=== PATIENT | male | born 1955 | race Caucasian/White ===

== ENCOUNTER 2022-10-18 00:03 | Observation (INO) | payer MEDICARE ==
[2022-10-18 00:58] LABS: Basophils # (A) 0.1 k/uL (0-0.2); Basophils % (A) 1 %; Eosinophils # (A) 0.4 k/uL (0-0.7); Eosinophils % (A) 4 %; HCT 40.1 % (39.0-53.0); HGB 13.9 gm/dL (13.0-17.5); Lymphocytes # (A) 2.5 k/uL (1.0-4.8); Lymphocytes % (A) 25 %; MCH 30.8 pg (25.0-35.0); MCHC 34.6 g/dL (31.0-37.0); MCV 89.2 fL (80.0-100.0); Mean Platelet Volume 7.6; Monocytes # (A) 0.7 k/uL (0-1.0); Monocytes % (A) 7 %; Neutrophils # (A) 5.9 k/uL (1.3-7.7); Neutrophils % (A) 59 %; Platelet Count 186 k/uL (150-450); RBC 4.49 m/uL (4.30-5.90); RDW 13.4 % (11.5-15.5)
[2022-10-18 01:08] LABS: ALT 25 U/L (4-49); AST 23 U/L (17-59); African American GFR (CKD) >90 (>60 ml/min/1.73 sqM); Albumin 4.1 g/dL (3.5-5.0); Alkaline Phosphatase 73 U/L (38-126); Anion Gap 8 mmol/L; Blood Urea Nitrogen 21 mg/dL (9-20); Calcium 8.6 mg/dL (8.4-10.2); Carbon Dioxide 23 mmol/L (22-30); Chloride 103 mmol/L (98-107); Glucose 130 mg/dL (74-99); Magnesium 2.3 mg/dL (1.6-2.3); Non-African American GFR(CKD) 79 (>60 ml/min/1.73 sqM); Potassium 4.3 mmol/L (3.5-5.1); Sodium 134 mmol/L (137-145); Total Bilirubin 0.5 mg/dL (0.2-1.3); Total Protein 7.7 g/dL (6.3-8.2)
[2022-10-18] MEDS ORDERED: SODIUM CHLORIDE 0.9% 1,000 ML IV STA (01:12)
--- NOTE | 2022-10-18 01:12 | ED ---
Chest Pain HPI - General Chief Complaint: Chest Pain Stated Complaint: Rt Side Chest Pain Time Seen by Provider: 10/18/22 01:12 Source: patient, RN notes reviewed, old records reviewed Mode of arrival: ambulatory - History of Present Illness Initial Comments: This is a 65-year-old male to the emergency department for evaluation. Patient presents today for evaluation of chest pain chest pain is right-sided. No shortness of breath no recent cough or congestion recent fevers. Patient has not had similar pain before. Patient's pain is mildly right-sided chest No travel history or sick contacts. No fevers. MD Complaint: chest pain (Chest pain right-sided), other (Anxiety) -: unknown Onset: during rest, during exertion Pain Location: right chest Pain Radiation: none Quality: tightness, aching, heaviness Consistency: intermittent Improves With: nothing Worsens With: nothing Anginal Symptoms: diaphoresis Other Symptoms: palpitations Treatments Prior to Arrival: none - Related Data Allergies Allergy/AdvReac Type Severity Reaction Status Date / Time No Known Allergies Allergy Verified 10/18/22 00:14 Review of Systems ROS Statement: Those systems with pertinent positive or pertinent negative responses have been documented in the HPI. ROS Other: All systems not noted in ROS Statement are negative. EKG Findings - EKG Comments: EKG Findings:: EKG interpreted by me sinus 85 NV 184 QRS 110 QTc 399 Past Medical History Past Medical History: Hypertension, Thyroid Disorder History of Any Multi-Drug Resistant Organisms: None Reported Past Surgical History: Hernia Repair Past Psychological History: No Psychological Hx Reported Smoking Status: Former smoker Past Alcohol Use History: None Reported Past Drug Use History: None Reported General Exam General appearance: alert, in no apparent distress, anxious (Ning) Head exam: Present: atraumatic, normocephalic, normal inspection Eye exam: Present: normal appearance, PERRL, EOMI. Absent: scleral icterus, conjunctival injection, periorbital swelling ENT exam: Present: normal exam, mucous membranes moist Neck exam: Present: normal inspection. Absent: tenderness, meningismus, lymphadenopathy Respiratory exam: Present: normal lung sounds bilaterally. Absent: respiratory distress, wheezes, rales, rhonchi, stridor Cardiovascular Exam: Present: regular rate, normal rhythm, normal heart sounds. Absent: systolic murmur, diastolic murmur, rubs, gallop, clicks GI/Abdominal exam: Present: soft, normal bowel sounds. Absent: distended, tenderness, guarding, rebound, rigid Extremities exam: Present: normal inspection, full ROM, normal capillary refill. Absent: tenderness, pedal edema, joint swelling, calf tenderness Back exam: Present: normal inspection Neurological exam: Present: alert, oriented X3, CN II-XII intact Psychiatric exam: Present: normal affect, normal mood Skin exam: Present: warm, dry, intact, normal color. Absent: rash Course Vital Signs 10/18/22 10/18/22 00:11 03:00 Temperature 98.7 F Pulse Rate 93 70 Respiratory 19 16 Rate Blood Pressure 104/78 110/83 O2 Sat by Pulse 97 98 Oximetry - Reevaluation(s) Reevaluation #1: 10/18/22 01:26 Medical records reviewed Reevaluation #2: 10/18/22 03:17 Patient pain is improved here in the ER Reevaluation #3: 10/18/22 03:17 Patient informed results and questions answered - Consultations Consultation #1: Spoke with admitting physicians agree to admit this patient Chest Pain MDM - MDM 68 male with chest pain found to have pulmonary wasn't here in the ER. Patient be admitted for evaluation, echo for right heart strain, chest pain, vascular see regarding PE Critical Care Time Critical Care Time: Yes Total Critical Care Time: 31 Disposition Clinical Impression: Chest pain, Pulmonary embolism Disposition: ADMITTED IP TO THIS [facility] Condition: Good Is patient prescribed a controlled substance at d/c from ED?: No Referrals: Winston Barclay Jr, [Primary Care Provider] - 1-2 days Time of Disposition: 03:20
--- NOTE | 2022-10-18 01:33 | XR ---
EXAMINATION TYPE: XR chest 2V DATE OF EXAM: 10/18/2022 COMPARISON: NONE HISTORY: Chest pain TECHNIQUE: 2 views FINDINGS: Heart is normal. There are small linear density right lung base. The other lung fuentes are clear. There are no hilar masses. Bony thorax is intact. IMPRESSION: Minimal subsegmental atelectasis right lung base. Normal heart.
--- NOTE | 2022-10-18 02:48 | CT ---
EXAMINATION TYPE: CT angio chest DATE OF EXAM: 10/18/2022 COMPARISON: None HISTORY: R/O PE SOB CT DLP: 749.3 mGycm Automated exposure control for dose reduction was used. CONTRAST: Performed with IV Contrast, patient injected with 100 mL of Isovue 370. Images obtained from the thoracic inlet to the diaphragm with the IV contrast. There are Three-D post processed images. There is no mediastinal adenopathy. There are no hilar masses. There is filling defect in the right lower lobe pulmonary artery. Heart size is normal. No pericardia l effusion. Upper abdominal soft tissues are intact. There is some infiltrate and atelectasis right p osterior lung base. There is small hiatal hernia. The thoracic aorta is intact. No aneurysm. No dissection. The thoracic spine is intact. No compressio n fracture. IMPRESSION: There is embolism in the right lower lobe pulmonary artery. Pulmonary infiltrate and atelectasis right lower lobe. Exam was discussed with the emergency room att ending staff at 2:45 AM.
[2022-10-18 02:59] LABS: Partial Thromboplastin Time 26.5 sec (22.0-30.0); Prothrombin Time 10.2 sec (9.0-12.0)
[2022-10-18] MEDS ORDERED: HEPARIN SODIUM 1,000 UN/ML (10ML VL) IV ONE (03:14)
[2022-10-18] MEDS ORDERED: NALOXONE 0.4 MG/ML 1 ML VIAL IV PRN (03:14)
[2022-10-18] MEDS ORDERED: MORPHINE SULFATE 4 MG/ML SYRINGE IV PRN (03:14)
[2022-10-18] MEDS ORDERED: HEPARIN SODIUM 1,000 UN/ML (10ML VL) IV PRN (03:14)
[2022-10-18] MEDS ORDERED: ONDANSETRON 4 MG/2 ML VIAL IVP PRN (03:14)
[2022-10-18] MEDS ORDERED: HEPARIN SOD,PORK IN 0.45% NACL 25,000 UNIT in 0.45% NACL 1 250ML.BAG IV SCH (03:15)
[2022-10-18] MEDS ORDERED: SODIUM CHLORIDE 0.9% 1,000 ML IV SCH (03:15)
--- NOTE | 2022-10-18 09:48 | US ---
EXAMINATION TYPE: US venous doppler duplex LE BI DATE OF EXAM: 10/18/2022 9:30 AM COMPARISON: NONE CLINICAL HISTORY: PE, evaluate for DVT. PE SIDE PERFORMED: Bilateral TECHNIQUE: The lower extremity deep venous system is examined utilizing real time linear array sonog rula with graded compression, doppler sonography and color-flow sonography. VESSELS IMAGED: Common Femoral Vein Deep Femoral Vein Greater Saphenous Vein * Femoral Vein Popliteal Vein Small Saphenous Vein * Proximal Calf Veins (* superficial vessels) Right Leg: Negative for DVT Left Leg: Negative for DVT Grayscale, color doppler, spectral doppler imaging performed of the deep veins of the lower extremiti es. There is normal flow, compressibility, vascular waveforms. IMPRESSION: No evidence of deep vein thrombosis of either lower extremity.
[2022-10-18] MEDS ORDERED: APIXABAN 5 MG TAB PO SCH (10:00)
--- NOTE | 2022-10-18 10:14 | P.GSCN ---
History of Present Illness Consult date: 10/18/22 Reason for Consult: Pulmonary embolism Requesting physician: Winston Barclay Jr History of present illness: This is a pleasant 67-year-old male with a past medical history including high blood pressure and hypothyroidism presented to the emergency department with complaints of right-sided chest pain especially when he took in a deep breath. He denies any actual shortness of breath but states with a deep breath he does have significant pain in the right side. He came in and had a CT angiogram of the chest that did show a right lower lobe pulmonary embolism. There was also pulmonary infiltrate and atelectasis right lower lobe. Patient was started on a heparin drip. Currently undergoing echocardiogram. He denies any previous history of DVT or pulmonary embolism. He denies any family history of clotting disease or personal history of clotting disorder. He denies any recent surgeries, recent travel or sedentary lifestyle. Patient is a nonsmoker. He is denies any pain or swelling in his lower extremities, states he's been having some numbness and tingling in his feet bilaterally. Denies any recent illness, no fevers or chills. Review of Systems A 14 point review systems was completed all pertinent positives and negatives as stated in the HPI. Past Medical History Past Medical History: Hypertension, Thyroid Disorder History of Any Multi-Drug Resistant Organisms: None Reported Past Surgical History: Hernia Repair Past Psychological History: No Psychological Hx Reported Smoking Status: Former smoker Past Alcohol Use History: None Reported Past Drug Use History: None Reported Medications and Allergies Home Medications Medication Instructions Recorded Confirmed Type Apixaban [Eliquis Starter Pack 5 - 10 mg PO DIRECTED 30 Days 10/18/22 Rx (for VTE)] #1 each Levothyroxine Sodium [Synthroid] 125 mcg PO AC-BRKFST 10/18/22 10/18/22 History Lisinopril-Hctz 20-12.5 mg 1 tab PO DAILY 10/18/22 10/18/22 History [Zestoretic 20-12.5] Turmeric Root Extract [Turmeric] 500 mg PO HS 10/18/22 10/18/22 History Allergies Allergy/AdvReac Type Severity Reaction Status Date / Time No Known Allergies Allergy Verified 10/18/22 08:23 Surgical - Exam Vital Signs Temp Pulse Resp BP Pulse Ox 98.7 F 93 19 104/78 97 10/18/22 00:11 10/18/22 00:11 10/18/22 00:11 10/18/22 00:11 10/18/22 00:11 General appearance: The patient is alert, oriented, appears in no acute distress. HET: Head is normocephalic and atraumatic. Pupils are equal and reactive. Neck: Supple. Heart: Regular. Lungs: Equal expansion, normal respiratory effort. Abdomen: Soft, nontender, nondistended. Extremities: Normal skin color and turgor. Patient has some lower extremity edema. No redness, no pain to palpation. Neurological: No focal deficits. Strength and sensation are grossly intact. Results - Labs 10/18/22 00:33 10/18/22 00:33 Abnormal Lab Results - Last 24 Hours (Table) 10/18/22 10/18/22 Range/Units 00:33 01:29 D-Dimer 1.08 H (<0.60) mg/L FEU Sodium 134 L (137-145) mmol/L BUN 21 H (9-20) mg/dL Glucose 130 H (74-99) mg/dL Diabetes panel 10/18/22 Range/Units 00:33 Sodium 134 L (137-145) mmol/L Potassium 4.3 (3.5-5.1) mmol/L Chloride 103 (98-107) mmol/L Carbon Dioxide 23 (22-30) mmol/L BUN 21 H (9-20) mg/dL Creatinine 0.98 (0.66-1.25) mg/dL Glucose 130 H (74-99) mg/dL Calcium 8.6 (8.4-10.2) mg/dL AST 23 (17-59) U/L ALT 25 (4-49) U/L Alkaline Phosphatase 73 (38-126) U/L Total Protein 7.7 (6.3-8.2) g/dL Albumin 4.1 (3.5-5.0) g/dL Calcium panel 10/18/22 Range/Units 00:33 Calcium 8.6 (8.4-10.2) mg/dL Albumin 4.1 (3.5-5.0) g/dL Pituitary panel 10/18/22 Range/Units 00:33 Sodium 134 L (137-145) mmol/L Potassium 4.3 (3.5-5.1) mmol/L Chloride 103 (98-107) mmol/L Carbon Dioxide 23 (22-30) mmol/L BUN 21 H (9-20) mg/dL Creatinine 0.98 (0.66-1.25) mg/dL Glucose 130 H (74-99) mg/dL Calcium 8.6 (8.4-10.2) mg/dL Adrenal panel 10/18/22 Range/Units 00:33 Sodium 134 L (137-145) mmol/L Potassium 4.3 (3.5-5.1) mmol/L Chloride 103 (98-107) mmol/L Carbon Dioxide 23 (22-30) mmol/L BUN 21 H (9-20) mg/dL Creatinine 0.98 (0.66-1.25) mg/dL Glucose 130 H (74-99) mg/dL Calcium 8.6 (8.4-10.2) mg/dL Total Bilirubin 0.5 (0.2-1.3) mg/dL AST 23 (17-59) U/L ALT 25 (4-49) U/L Alkaline Phosphatase 73 (38-126) U/L Total Protein 7.7 (6.3-8.2) g/dL Albumin 4.1 (3.5-5.0) g/dL - Imaging Comments: Venous duplex bilateral lower extremities negative for DVT Echocardiogram negative for right heart strain per cardiology team Assessment and Plan Assessment: 1. Right lower lobe pulmonary without evidence of right heart strain, unprovoked Plan: 1. Venous duplex bilateral lower extremities ordered 2. Agree with heparin drip, may transition to Eliquis 10 mg twice a day 3. Consider possible outpatient workup with hematology for unprovoked pulmonary embolism 4. Patient is clear from vascular surgery for discharge Thank you for this consultation, we will sign off at this time. The impression and plan of care has been dictated as directed. Dr. Garcias I performed a history and examination of this patient, discussed the same with the dictator. I agree with the dictator's note ,documented as a scribe. Any additional findings or plans will be noted.
[2022-10-18 10:47] VITALS: BP 144/77; PULSE 72; RESP 18; TEMP 97.9
--- NOTE | 2022-10-18 12:57 | CA ---
Transthoracic Echo Report Name: Michael Kevin Age: 67 Gender: M : 1955 Exam Date: 10/18/2022 09:00 Exam Location: [facility] Ht (in): 72 Wt (lb): 280 Ordering Physician: Steve Wheatley DO Attending/Referring Phys: [id number], Dioni Twisting Frame Operator Digna Glynn RDCS Procedure CPT: Indications: PE Cardiac Hx: Technical Quality: Very technically difficult study Contrast 1: Lumason Total Dose (mL): 4 Contrast 2: Total Dose (mL): MEASUREMENTS (Male / Female) Normal Values 2D ECHO LV Diastolic Diameter PLAX 5.6 cm 4.2 - 5.9 / 3.9 - 5.3 cm LV Systolic Diameter PLAX 4.1 cm IVS Diastolic Thickness 1.0 cm 0.6 - 1.0 / 0.6 - 0.9 cm LVPW Diastolic Thickness 0.8 cm 0.6 - 1.0 / 0.6 - 0.9 cm LV Relative Wall Thickness 0.3 RV Internal Dim ED PLAX 3.5 cm M-MODE Aortic Root Diameter MM 3.9 cm LA Systolic Diameter MM 4.3 cm LA Ao Ratio MM 1.1 MV E Point Septal Separation 0.5 cm AV Cusp Separation MM 1.7 cm FINDINGS Left Ventricle Left ventricular ejection fraction is estimated at 55 %. Left ventricular cavity size normal. Right Ventricle Normal right ventricular size and function. Right ventricular systolic pressure within normal limits. Right Atrium Normal right atrial size. Left Atrium Normal left atrial size. Mitral Valve Mitral valve not well visualized. Aortic Valve Aortic valve not well visualized. Tricuspid Valve Tricuspid valve not well visualized. Pulmonic Valve Pulmonic valve not well visualized. Pericardium Echo free space anterior to the right ventricle likely represents a fat pad. Aorta Aortic root and proximal ascending aorta not well visualized. CONCLUSIONS Normal LV systolic function Previewed by: Dr. Yinka Fernandez MD (Electronically Signed) Final Date: 18 October 2022 12:56
--- NOTE | 2022-10-18 13:50 | P.CRDCN ---
History of Present Illness History of present illness: HISTORY OF PRESENTING ILLNESS This is a pleasant 67-year-old male past medical history significant for hypothyroidism, hypertension, former tobacco use. He does not follow with a straight cutter. We have been asked to see in consultation for chest pain. Patient is seen and examined in the emergency department. Patient presented with right- sided chest discomfort when taking a deep breath. Yesterday he noticed the right sided pain more, aggravated by deep breathing. He denies any exertional chest pain or shortness of breath. He denies any recent travel or recent surgeries. He is active at home walks daily. He denies any pain in his legs. He denies any history of CAD, ID, stroke, diabetes. He denies any current tobacco use. Patient was evaluated in the emergency department and elevated d-dimer. CTA revealed a right lower lobe pulmonary embolism. He was started on IV heparin. He denies any history of bleeding. DIAGNOSTICS * EKG reveals sinus rhythm with occasional PACs, heart rate 85 * Telemetry tracings indicate sinus rhythm * CTA revealed pulmonary embolism in the right lower lobe pulmonary artery, pulmonary infiltrate atelectasis right lower lobe. * Laboratory reviewed, troponin negative 3, d-dimer 1.08, sodium 134, potassium 4.3, BUN 21, serum creatinine 0.9, magnesium 2.3, CBC unremarkable. * Current home cardiac medications include lisinoprilhydrochlorothiazide REVIEW OF SYSTEMS At the time of my exam: CONSTITUTIONAL: Denies fever or chills. CARDIOVASCULAR: Denies chest pain, shortness of breath, orthopnea, PND or palpitations. RESPIRATORY: Denies cough. GASTROINTESTINAL: Denies abdominal pain, diarrhea, constipation, nausea or vomiting. MUSCULOSKELETAL: Denies myalgias. NEUROLOGIC: Denies numbness, tingling, headacbe or weakness. ENDOCRINE: Denies fatigue, weight change, polydipsia or polyurina. GENITOURINARY: Denies burning, hematuria or urgency with micturation. HEMATOLOGIC: Denies history of anemia or bleeding. PHYSICAL EXAMINATION Vitals reviewed CONSTITUTIONAL: No apparent distress. HEENT: Head is normocephalic. Pupils are equal, round. Sclerae anicteric. Mucous membranes of the mouth are moist. No JVD. No carotid bruit. CHEST EXAMINATION: Lungs are clear to auscultation. No chest wall tenderness is noted on palpation or with deep breathing. HEART EXAMINATION: Regular rate and rhythm. S1, S2 heard. No murmurs, gallops or rub. ABDOMEN: Soft, nontender. Positive bowel sounds. EXTREMITIES: 2+ peripheral pulses, no lower extremity edema and no calf tenderness. NEUROLOGIC EXAMINATION: Patient is awake, alert and oriented x3. ASSESSMENT Right lower lobe pulmonary embolism, non-massive, no evidence of right heart strain, unprovoked History of hypertension Former tobacco use PLAN Echocardiogram revealed EF 55%, no right heart strain. Venous Dopplers negative for DVT bilaterally Recommend switching to PO Eliquis Patient can be discharged from a cardiology perspective Nurse practitioner note has been reviewed by physician. Signing provider agrees with the documented findings, assessment, and plan of care. Past Medical History Past Medical History: Hypertension, Thyroid Disorder History of Any Multi-Drug Resistant Organisms: None Reported Past Surgical History: Hernia Repair Past Psychological History: No Psychological Hx Reported Smoking Status: Former smoker Past Alcohol Use History: None Reported Past Drug Use History: None Reported Medications and Allergies Home Medications Medication Instructions Recorded Confirmed Type Apixaban [Eliquis Starter Pack 5 - 10 mg PO DIRECTED 30 Days 10/18/22 Rx (for VTE)] #1 each Famotidine [Pepcid] 20 mg PO BID #60 tablet 10/18/22 Rx Levothyroxine Sodium [Synthroid] 125 mcg PO AC-BRKFST 10/18/22 10/18/22 History Lisinopril-Hctz 20-12.5 mg 1 tab PO DAILY 10/18/22 10/18/22 History [Zestoretic 20-12.5] Turmeric Root Extract [Turmeric] 500 mg PO HS 10/18/22 10/18/22 History Allergies Allergy/AdvReac Type Severity Reaction Status Date / Time No Known Allergies Allergy Verified 10/18/22 08:23 Physical Exam Vitals: Vital Signs Temp Pulse Resp BP Pulse Ox 10/18/22 06:00 98 F 70 16 129/85 98 10/18/22 03:00 70 16 110/83 98 10/18/22 00:11 98.7 F 93 19 104/78 97 Intake and Output 10/17/22 10/18/22 10/18/22 22:59 06:59 14:59 Other: Weight 127.006 kg Results 10/18/22 00:33 10/18/22 00:33 Cardiac Enzymes 10/18/22 10/18/22 10/18/22 Range/Units 00:33 00:33 06:03 AST 23 (17-59) U/L Troponin I <0.012 <0.012 (0.000-0.034) ng/mL Coagulation 10/18/22 Range/Units 01:29 PT 10.2 (9.0-12.0) sec APTT 26.5 (22.0-30.0) sec CBC 10/18/22 Range/Units 00:33 WBC 10.0 (3.8-10.6) k/uL RBC 4.49 (4.30-5.90) m/uL Hgb 13.9 (13.0-17.5) gm/dL Hct 40.1 (39.0-53.0) % Plt Count 186 (150-450) k/uL Comprehensive Metabolic Panel 10/18/22 Range/Units 00:33 Sodium 134 L (137-145) mmol/L Potassium 4.3 (3.5-5.1) mmol/L Chloride 103 (98-107) mmol/L Carbon Dioxide 23 (22-30) mmol/L BUN 21 H (9-20) mg/dL Creatinine 0.98 (0.66-1.25) mg/dL Glucose 130 H (74-99) mg/dL Calcium 8.6 (8.4-10.2) mg/dL AST 23 (17-59) U/L ALT 25 (4-49) U/L Alkaline Phosphatase 73 (38-126) U/L Total Protein 7.7 (6.3-8.2) g/dL Albumin 4.1 (3.5-5.0) g/dL Current Medications Generic Name Dose Route Start Last Admin Trade Name Freq PRN Reason Stop Dose Admin Heparin Sodium (Porcine) 0 unit 10/18/22 03:14 Heparin Sodium 1,000 Un/Ml (10ml Vl) IV PER PROTOCOL PRN Low PTT Protocol Heparin Sodium/Sodium Chloride 250 mls @ 9.995 mls/hr 10/18/22 03:15 10/18/22 03:33 25,000 unit/ Sodium Chloride IV 7.87 units/kg/hr .Q24H DEIDRE 9.995 mls/hr Administration Protocol 7.87 UNITS/KG/HR Sodium Chloride 1,000 mls @ 130 mls/hr 10/18/22 03:15 10/18/22 03:32 Saline 0.9% IV 130 mls/hr .[id number] DEIDRE Administration Morphine Sulfate 4 mg 10/18/22 03:14 Morphine Sulfate 4 Mg/Ml Syringe IV Q4HR PRN Severe Pain (Scale 7 to 10) Naloxone HCl 0.2 mg 10/18/22 03:14 Naloxone 0.4 Mg/Ml 1 Ml Vial IV Q2M PRN Opioid Reversal Ondansetron HCl 4 mg 10/18/22 03:14 Ondansetron 4 Mg/2 Ml Vial IVP Q8HR PRN Nausea And Vomiting Intake and Output 10/17/22 10/18/22 10/18/22 22:59 06:59 14:59 Other: Weight 127.006 kg 10/18/22 00:33 10/18/22 00:33
--- NOTE | 2022-10-18 13:59 | P.HPIM ---
History of Present Illness H&P Date: 10/18/22 Chief Complaint: Right-sided chest pain with deep inspiration History and Physical and Discharge Summary: This Pleasant 67-year-old gentleman with past medical history of hypertension, hypothyroidism, former nicotine dependence, obesity and multiple other medical issues presented to the ER with complaints of right-sided chest pain worsened by deep inspiration. D-dimer 1.08.Chest CTA reported right lower lobe pulmonary embolism, pulmonary infiltrate and atelectasis. Heparin drip initiated, echo completed with verbal report of normal LV function with no RV strain as per cardiology. Denies recent travel or sedentary lifestyle, recent surgeries, recent illnesses/recent covid, most recent Covid Booster last year, and no prior history or family history of clotting disorder, family history of prostate cancer-father and brother. Evaluated by vascular surgery, venous Doppler completed reporting no evidence of DVT of lower extremities. Afebrile, normal WBC. Maintaining O2 sats in the high 90s on room air. Hematology and chemistry unremarkable with the exceptions of Sodium 134 ,BUN 21, creatinine 0.98, glucose 1:30. Currently denies chest pain, palpitations shortness of breath. Troponins negative 3. Review of Systems ROS Statement: Those systems with pertinent positive or pertinent negative responses have been documented in the HPI. ROS Other: All systems not noted in ROS Statement are negative. Past Medical History Past Medical History: Hypertension, Thyroid Disorder History of Any Multi-Drug Resistant Organisms: None Reported Past Surgical History: Hernia Repair Past Psychological History: No Psychological Hx Reported Smoking Status: Former smoker Past Alcohol Use History: None Reported Past Drug Use History: None Reported Medications and Allergies Home Medications Medication Instructions Recorded Confirmed Type Apixaban [Eliquis Starter Pack 5 - 10 mg PO DIRECTED 30 Days 10/18/22 Rx (for VTE)] #1 each Famotidine [Pepcid] 20 mg PO BID #60 tablet 10/18/22 Rx Levothyroxine Sodium [Synthroid] 125 mcg PO AC-BRKFST 10/18/22 10/18/22 History Lisinopril-Hctz 20-12.5 mg 1 tab PO DAILY 10/18/22 10/18/22 History [Zestoretic 20-12.5] Turmeric Root Extract [Turmeric] 500 mg PO HS 10/18/22 10/18/22 History Allergies Allergy/AdvReac Type Severity Reaction Status Date / Time No Known Allergies Allergy Verified 10/18/22 08:23 Physical Exam Vitals: Vital Signs Temp Pulse Pulse Resp BP BP Pulse Ox 10/18/22 09:42 97.9 F 72 18 144/77 97 10/18/22 06:00 98 F 70 16 129/85 98 10/18/22 03:00 70 16 110/83 98 10/18/22 00:11 98.7 F 93 19 104/78 97 Intake and Output 10/17/22 10/18/22 10/18/22 22:59 06:59 14:59 Intake Total 311.298 Balance 311.298 Intake: Intake, IV Titration 71.298 Amount Heparin Sod,Pork in 0.45% 71.298 NaCl 25,000 unit In 0.45 % NaCl 1 250ml.bag @ 7.87 UNITS/KG/HR 9.995 mls/hr IV .Q24H DEIDRE Rx#: [id number] Oral 240 Other: Voiding Method Toilet Weight 127.006 kg PHYSICAL EXAM: VITAL SIGNS: As above GENERAL: Sitting up on stretcher, no acute distress. HEENT: Conjunctivae normal. eyes normal. Oral mucosa moist. NECK: Supple, No JVD. No thyroid enlargement. No LNs CARDIOVASCULAR: S1, S2 regular. No murmur RESPIRATION: Normal respiratory effort,Breath sounds diminished in the bases. No rhonchi or crackles. No bronchial breathing. ABDOMEN: Soft, nontender . No guarding. no masses palpable. No ascites, No hepatosplenomegaly.Bowel sounds heard. LEGS: Trace lower extremity edema, no calf tenderness PSYCHIATRY: Alert and oriented X3, mood and affect normal. NERVOUS SYSTEM: Cranial N 2-12 grossly normal. No focal deficits. Strength and sensation grossly intact.. Skin: Warm and dry, no rash Results CBC & Chem 7: 10/18/22 00:33 10/18/22 00:33 Labs: Abnormal Lab Results - Last 24 Hours (Table) 10/18/22 10/18/22 Range/Units 00:33 01:29 D-Dimer 1.08 H (<0.60) mg/L FEU Sodium 134 L (137-145) mmol/L BUN 21 H (9-20) mg/dL Glucose 130 H (74-99) mg/dL Assessment and Plan Assessment: Right lower lobe PE without evidence of right heart strain, etiology unclear. Most recent COVID Booster 2020. Obesity, BMI 35.9 Prior nicotine dependence Hypertension Hypothyroidism Family history of prostate CA Plan: Continue on current medication regime ,monitoring and symptomatic treatment. Vascular and cardiology evaluations with workup completed. Echo completed with oral report from cardiology CUT [employer] MAN reporting no RV strain. Venous Dopplers of bilateral lower extremities reported negative. Denies recent illness, recent Covid nor recent booster-reports Covid booster received last year. TSH, hemoglobin A1c pending. As etiology remains unclear, patient will require further workup outpatient. Has never had a colonoscopy, reports a negative [place] 2.5 years ago. Recommend patient follow up outpatient with hematology. Patient is being discharged on starter pack of Eliquis, but will need to be converted to Coumadin outpatient with PCP Discharge Medication List Apixaban [Eliquis Starter Pack (for VTE)] 5 - 10 mg PO DIRECTED 30 Days #1 each 10/18/22 [Rx] Famotidine [Pepcid] 20 mg PO BID #60 tablet 10/18/22 [Rx] Levothyroxine Sodium [Synthroid] 125 mcg PO AC-BRKFST 10/18/22 [History] Lisinopril-Hctz 20-12.5 mg [Zestoretic 20-12.5] 1 tab PO DAILY 10/18/22 [History] Turmeric Root Extract [Turmeric] 500 mg PO HS 10/18/22 [History] The impression and plan of care has been dictated as directed. : I performed a history and examination of this patient, discussed the same with the dictator. I agree with the dictator's note ,documented as a scribe. Any additional findings or plans will be noted.
== END 2022-10-18 12:17 | disposition home or self-care (01) ==
LOC: EC 00:03 → 3SCARD 03:16
PROVIDERS: ADMIT Family Medicine; ATTEND Family Medicine
DX: I26.99 Other pulmonary embolism without acute cor pulmonale (principal); R07.1 Chest pain on breathing; I10 Essential (primary) hypertension; E03.9 Hypothyroidism, unspecified; E66.9 Obesity, unspecified; Z87.891 Personal history of nicotine dependence; Z79.01 Long term (current) use of anticoagulants; Z79.890 Hormone replacement therapy; Z79.899 Other long term (current) drug therapy; Z68.35 Body mass index [BMI] 35.0-35.9, adult; Z80.42 Family history of malignant neoplasm of prostate
CPT/HCPCS: 96361; 96374; 99285; 36415; 93005; 85379; 83880; 80053; 84443; 83735; 84484; 85025; 85610; 85730; 83036; 71046; 93970; 71275; G0378; C8929; J1644 ×2; Q9950; Q9967; 93306

== ENCOUNTER → 2022-12-11 | Outpatient (CLI) | payer MEDICARE ==
--- NOTE | 2022-12-11 13:57 | CTL ---
EXAMINATION TYPE: CT Low Dose Lung DATE OF EXAM ORDERED: 12/11/2022 HISTORY: Long-term tobacco use. Lung cancer screening CT DLP: DLP 90.[address] CTDI: 2.6 mGy Automated exposure control for dose reduction was used. SCREENING VISIT: Baseline COMPARISON: Prior CTA chest October 18, 2022 TECHNIQUE: Low dose computed tomography scan was performed through the chest at 1 mm thick sections a nd reconstructed images in multiple planes at 1 mm and [address] DIAGNOSTIC QUALITY: Limited, but interpretable FINDINGS: LUNG NODULES: Present, detailed below: Roughly 4 mm right lower lobe nodule axial image 165. No significant greater than 5 mm pulmonary nodu les. LUNGS: COPD: Severity: None Fibrosis: Severity: None Lymph nodes: No greater than 1 cm Other findings: None RIGHT PLEURAL SPACE: Effusion: Small Calcification: None Thickening: None Pneumothorax: None LEFT PLEURAL SPACE: Effusion: None Calcification: None Thickening: None Pneumothorax: None HEART: Heart Size: Normal Coronary Calcification: Moderate Pericardial Effusion: None OTHER FINDINGS: Upper abdomen: Small size hiatal hernia redemonstrated Bony thorax: None Supraclavicular region: None Other: None IMPRESSION: Suboptimal study due to body habitus. No significant greater than 5 mm pulmonary nodules. Small right pleural effusion current study is noted and larger from prior study. CT LUNG RAD AND CT CHEST RECOMMENDATION: Lung-Rad 2 Benign Appearance or Behavior: Continue annual sc reening with LDCT in 12 months. S Modifier (other clinically significant findings): S Consider further workup to determine etiology of new unilateral right-sided pleural effusion.
== END | disposition home or self-care (01) ==
LOC: RADCTMAIN 12:31
PROVIDERS: ATTEND Family Medicine
DX: Z12.2 Encounter for screening for malignant neoplasm of respiratory organs (principal); J90 Pleural effusion, not elsewhere classified; Z87.891 Personal history of nicotine dependence
CPT/HCPCS: 71271

== ENCOUNTER → 2023-12-25 | Outpatient (CLI) | payer MEDICARE ==
--- NOTE | 2023-12-26 15:10 | CTL ---
EXAMINATION TYPE: CT Low Dose Lung DATE OF EXAM ORDERED: 12/25/2023 HISTORY: . Lung cancer screening CT DLP: 168.[address] CTDI: 4.3 mGy Automated exposure control for dose reduction was used. SCREENING VISIT: Subsequent COMPARISON: September 10, 2012 3 TECHNIQUE: Low dose computed tomography scan was performed through the chest at 1 mm thick sections a nd reconstructed images in the coronal plane at [address] DIAGNOSTIC QUALITY: Satisfactory FINDINGS: LUNG NODULES: None. LUNGS: COPD: Severity: None Fibrosis: Severity: None Lymph nodes: None Other findings: None RIGHT PLEURAL SPACE: Effusion: Small Calcification: None Thickening: None Pneumothorax: None LEFT PLEURAL SPACE: Effusion: None Calcification: None Thickening: None Pneumothorax: None HEART: Heart Size: Normal Coronary calcification: Moderate Pericardial effusion: None OTHER FINDINGS: Upper abdomen: Normal Bony thorax: Normal Supraclavicular region: Normal Other: Ascending thoracic aorta at the level the main pulmonary artery measures 4.0 cm. The main pul monary artery at the bifurcation measures 3.5 cm. There may be a small hiatal hernia present. IMPRESSION: 1. Small right pleural effusion, present previously. 2. Small hiatal hernia. FOLLOW UP CT CHEST RECOMMENDATION: Follow up CT chest in [address] LUNG RAD: Lung-Rad 3 Probably Benign
== END | disposition home or self-care (01) ==
LOC: RADCTMAIN 12:23
PROVIDERS: ATTEND Family Medicine
DX: Z12.2 Encounter for screening for malignant neoplasm of respiratory organs (principal); K44.9 Diaphragmatic hernia without obstruction or gangrene; J90 Pleural effusion, not elsewhere classified; F17.210 Nicotine dependence, cigarettes, uncomplicated
CPT/HCPCS: 71271

== ENCOUNTER → 2025-04-22 | Outpatient (CLI) | payer MEDICARE ==
[2025-04-22 12:31] LABS: African American GFR (CKD) >90 (>60 ml/min/1.73 sqM); Blood Urea Nitrogen 23 mg/dL (9-20); Non-African American GFR(CKD) 82 (>60 ml/min/1.73 sqM)
--- NOTE | 2025-04-22 13:27 | CT ---
EXAMINATION TYPE: CT angio chest DATE OF EXAM: 04/22/2025 COMPARISON: 10/18/2022 CLINICAL INDICATION: Male, 69 years old with history of I26.99 PULMONARY EMBOLISM; PHH, SOB TECHNIQUE: CTA scan of the thorax is performed with IV Contrast, patient injected with 70 mL of Isovue 370, pulm onary embolism protocol. MIP images are created and reviewed. CT DLP: 765.[address] CTDI: mGy Automated exposure control for dose reduction was used. FINDINGS: There are no filling defects within the pulmonary arterial circulation to suggest pulmonary emboli. There is a large left pleural effusion and a small right pleural effusion. There is no airspace consolidation, or suspicious lung mass or nodule. There is no pneumothorax. There is no mediastinal, hilar or axillary adenopathy. Limited scanning through the upper abdomen with no gross abnormality. There are no focal osseous lesions. IMPRESSION: 1. No evidence of pulmonary embolus. 2. Large left pleural effusion and small right pleural effusion. [facility], , 04/22/2025 1:24 PM
== END | disposition home or self-care (01) ==
LOC: RADCTMAIN 11:53
PROVIDERS: ATTEND Family Medicine
DX: I26.99 Other pulmonary embolism without acute cor pulmonale (principal); J90 Pleural effusion, not elsewhere classified
CPT/HCPCS: 82565; 84520; 71275; 36415; Q9967

== ENCOUNTER 2025-04-30 12:11 | Day surgery (SDC) | payer MEDICARE ==
[2025-04-30 12:42] VITALS: TEMP 97.4
--- NOTE | 2025-04-30 14:26 | P.PCN ---
Date of Procedure: 04/30/25 Preoperative Diagnosis: Pleural effusion, left Postoperative Diagnosis: Pleural effusion, left Procedure(s) Performed: Thoracentesis, left Anesthesia: local Surgeon: Peggy Kiser Estimated Blood Loss (ml): 0 Pathology: other Condition: stable Disposition: same day Operative Findings: A time out was performed and the chest x-ray was reviewed, the appropriate side was confirmed and marked. My hands were washed immediately prior to the procedure. I wore a surgical cap, mask with protective eyewear, sterile gown and sterile gloves throughout the procedure. The patient was prepped and draped in a sterile manner using chlorhexidine scrub after the appropriate level was percu ssed and confirmed by ultrasound. 1% lidocaine was used to anesthesize the skin, subcutaneous tissue, superior aspect of the rib periosteum and parietal pleura. A finder needle was then introduced over the superior aspect of the rib to locate the pleural fluid; 2colored fluid was aspirated at a depth of approximately 2 cm. A 10-blade scalpel was used to slime the skin at the insertion site. The [id number] needle was then introduced through the skin incision into the pleural space using negative aspiration pressure and the red colometric indicator to confirm appropriate positioning of the needle. The thoracentesis catheter was then threaded without difficulty. 800 ml of turbid bloody fluid was removed without difficulty. The catheter was then removed. No immediate complications were noted during the procedure. A post-procedure chest x-ray is pending at the time of this note. The fluid will be sent for studies. Estimated blood loss is 0cc
[2025-04-30 14:46] VITALS: BP 120/77; PULSE 80; RESP 16
--- NOTE | 2025-04-30 15:25 | XR ---
EXAMINATION TYPE: XR chest 1V DATE OF EXAM: 04/30/2025 3:12 PM COMPARISON: Chest radiographs from [place] [id number]. CLINICAL INDICATION: Male, 69 years old with history of post thoracentesis; [facility] TECHNIQUE: XR chest 1V Frontal view of the chest. FINDINGS: Lungs/Pleura: No evidence of focal consolidation or pneumothorax. Blunting of the costophrenic angles is present. Pulmonary vascularity: Unremarkable. Heart/mediastinum: Cardiomediastinal silhouette is unremarkable. Musculoskeletal: No acute osseous pathology. Other findings: None Lines/Tubes: IMPRESSION: Bilateral pleural effusions left greater than right no definitive pneumothorax. [facility], , 04/30/2025 3:23 PM
== END 2025-04-30 15:43 | disposition home or self-care (01) ==
LOC: ORWHC2ENDO 12:11
PROVIDERS: ATTEND Internal Medicine Critical Care Medicine
DX: J90 Pleural effusion, not elsewhere classified (principal); E78.2 Mixed hyperlipidemia; I10 Essential (primary) hypertension; E03.9 Hypothyroidism, unspecified; Z86.711 Personal history of pulmonary embolism; Z79.890 Hormone replacement therapy; Z79.899 Other long term (current) drug therapy; Z87.891 Personal history of nicotine dependence
CPT/HCPCS: 32555; 71045

== ENCOUNTER → 2025-05-27 | Outpatient (CLI) | payer MEDICARE ==
[2025-05-27 12:50] LABS: African American GFR (CKD) >90 (>60 ml/min/1.73 sqM); Blood Urea Nitrogen 22 mg/dL (9-20); Non-African American GFR(CKD) 87 (>60 ml/min/1.73 sqM)
--- NOTE | 2025-05-27 13:35 | CT ---
CT chest with contrast. HISTORY: Hemothorax. COMPARISON: CTA chest dated 04/22/2025 TECHNIQUE: Multiple axial images were obtained through the thorax following the uneventful administra tion of nonionic IV contrast material. FINDINGS: There are persistent small bilateral pleural effusions, left greater than right. The right effusion i s stable. The left effusion appears mildly smaller compared to previous. There is mild compressive at electasis adjacent to both effusions in the lung bases. There is no pneumothorax. The great vessels the chest are normal. There is no mediastinal, hilar or axillary adenopathy. Limited scanning of the upper abdomen reveals a small hiatal hernia... No focal osseous lesions are seen. IMPRESSION: Mild lateral lower lobe atelectasis and pleural effusions, left greater than right as described above . No new abnormalities. [facility], , 05/27/2025 1:32 PM
== END | disposition home or self-care (01) ==
LOC: RADCTMAIN 12:03
PROVIDERS: ATTEND Internal Medicine Critical Care Medicine
DX: J94.2 Hemothorax (principal); J90 Pleural effusion, not elsewhere classified; J98.11 Atelectasis
CPT/HCPCS: 82565; 84520; 71260; 36415; Q9967